=== PATIENT | female | born 1960 | race Caucasian/White ===

== ENCOUNTER 2019-05-02 10:04 | Emergency (ER) | payer BC ==
[2019-05-02] MEDS ORDERED: Ketorolac 60 MG/2 ML SDV IM ONE (11:18)
--- NOTE | 2019-05-02 11:26 | EDM.PDOC ---
ED HPI GENERAL MEDICAL PROBLEM - General Chief Complaint: ENT Problem Stated Complaint: THROAT PROBLEMS Time Seen by Provider: 05/02/19 10:59 Source of Information: Reports: Patient, RN Notes Reviewed History Limitations: Reports: No Limitations - History of Present Illness INITIAL COMMENTS - FREE TEXT/NARRATIVE: Patient is a 58-year-old female who presents to the ED for the evaluation of a sore throat. Patient notes that she developed sinus issues about 10 days ago on April 22, for which she thought was getting better. But 3 days ago she developed some throat pain and swelling as well. She does appreciate some chest congestion with a wet cough and also a dry cough at times. Patient has been trying to take some children's Robitussin and vitamin C for management but this has not been helping much at all. Patient notes she has been checking her throat in the mirror and has appreciated some swelling and purulent drainage in the back of her throat. Patient denies any fevers but states she is mildly chilled at times a little bit of nausea but attributes this to increased coughing also some mild chest pain that she attributes to the increased coughing. Patient states she has chronic fatigue as she is usually sleep deprived. Patient does appreciate shortness of breath at rest and more with activity, this has worsened with this illness as well. She also does appreciate some right-sided ear pressure from the throat swelling. 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 Throat Pain Score (Numeric/FACES): 6 - Related Data Allergies Allergy/AdvReac Type Severity Reaction Status Date / Time ampicillin Allergy Hives Verified 05/02/19 10:38 Penicillins Allergy Hives Verified 05/02/19 10:38 sulfamethoxazole Allergy Hives Verified 05/02/19 10:38 [From ] trimethoprim [From ] Allergy Hives Verified 05/02/19 10:38 Home Meds: Home Meds Doxycycline [Vibramycin] 100 mg PO BID #19 cap 05/02/19 [Rx] Past Medical History Endocrine/Metabolic History: Reports: Hypothyroidism Social & Family History - Tobacco Use Smoking Status *Q: Never Smoker - Caffeine Use Caffeine Use: Reports: None - Recreational Drug Use Recreational Drug Use: No ED ROS ENT - Review of Systems Review Of Systems: See Below Constitutional: Reports: Chills, Fatigue. Denies: Fever HEENT: Reports: Ear Pain (Right sided), Throat Pain, Throat Swelling Respiratory: Reports: Shortness of Breath, Cough. Denies: Wheezing, Sputum Cardiovascular: Reports: Chest Pain (chest discomfort) Endocrine: Reports: No Symptoms GI/Abdominal: Reports: Nausea. Denies: Constipation, Diarrhea, Vomiting : Reports: No Symptoms Musculoskeletal: Reports: No Symptoms Skin: Reports: No Symptoms Neurological: Reports: No Symptoms Psychiatric: Reports: No Symptoms Hematologic/Lymphatic: Reports: No Symptoms Immunologic: Reports: No Symptoms ED EXAM, ENT - Physical Exam Exam: See Below Exam Limited By: No Limitations General Appearance: Alert, WD/WN, No Apparent Distress Eye Exam: Bilateral Eye: EOMI, Normal Inspection, PERRL Ears: Normal External Exam, Normal TMs Nose: Normal Inspection Mouth/Throat: Normal Inspection, Normal Gums, Normal Lips, Normal Teeth, Pharyngeal Erythema (bilaterally), Tonsillar Exudates (bilaterally) Head: Atraumatic, Normocephalic Neck: Normal Inspection, Supple, Non-Tender, Full Range of Motion, Tender Lateral (mild swelling appreciated, no discrete nodes detected.) Respiratory/Chest: No Respiratory Distress, Lungs Clear, Normal Breath Sounds, No Accessory Muscle Use, Chest Non-Tender Cardiovascular: Normal Peripheral Pulses, Regular Rate, Rhythm, No Murmur GI/Abdominal: Normal Bowel Sounds, Soft, Non-Tender, No Distention, No Mass Extremities: Normal Inspection, Normal Capillary Refill Neurological: Alert, Oriented, Normal Cognition, No Motor/Sensory Deficits Psychiatric: Normal Affect, Normal Mood Skin: Warm, Dry, Intact, Normal Color, No Rash Course - Vital Signs Last Recorded V/S: Last Vital Signs Temp 97.2 F 05/02/19 10:36 Pulse 79 05/02/19 10:36 Resp 16 05/02/19 10:36 BP 144/67 H 05/02/19 10:36 Pulse Ox 96 05/02/19 10:36 - Orders/Labs/Meds Meds: Medications Discontinued Medications Generic Name Dose Route Start Last Admin Trade Name Freq PRN Reason Stop Dose Admin Azithromycin 500 mg 05/02/19 12:02 05/02/19 12:23 Zithromax PO 05/02/19 12:03 500 mg ONETIME ONE Administration Doxycycline Hyclate 100 mg 05/02/19 12:24 05/02/19 12:35 Vibramycin PO 05/02/19 12:25 100 mg ONETIME ONE Administration Ketorolac Tromethamine 60 mg 05/02/19 11:18 05/02/19 11:31 Toradol IM 05/02/19 11:19 60 mg ONETIME ONE Administration - Re-Assessments/Exams Free Text/Narrative Re-Assessment/Exam: 05/02/19 11:58 Patient presents to the ED for the evaluation of a sore throat. A strep screen was obtained by triage nurse, this is positive at this time. Due to the patient 's penicillin allergy we will give her a course of a azithromycin for management. Departure - Departure Time of Disposition: 12:05 Disposition: Home, Self-Care 01 Condition: Fair Clinical Impression: Strep throat - Discharge Information *PRESCRIPTION DRUG MONITORING PROGRAM REVIEWED*: No *COPY OF PRESCRIPTION DRUG MONITORING REPORT IN PATIENT ROXI: No Prescriptions: Doxycycline [Vibramycin] 100 mg PO BID #19 cap Instructions: Strep Throat, [id number] Referrals: PCP,Not In Area [Primary Care Provider] - Forms: ED Department Discharge Additional Instructions: You were evaluated in the ED today for your sore throat. Your rapid strep screen was positive for strep at this time. You were given a dose of Doxycycline in the ER for management due to your penicillin allergy. You were given a prescription of antibiotics for 10 days to complete the course of management. These were electronic sent to the Clinic pharmacy located at the [facility] across the street. In regards to your records, he were given a release information sheet to fill out, your records should be made available to your primary care provider in a short amount of time. Please return to the ER if your symptoms change or worsen.
[2019-05-02] MEDS ORDERED: Azithromycin 250 MG Tab PO ONE (12:02)
[2019-05-02] MEDS ORDERED: Doxycycline 100 MG Cap PO ONE (12:24)
== END 2019-05-02 12:52 | disposition home or self-care (01) ==
LOC: JD.ED 10:04
DX: J02.0 Streptococcal pharyngitis (principal); Z88.0 Allergy status to penicillin; Z88.1 Allergy status to other antibiotic agents
CPT/HCPCS: 87430; 96372; 99283; A9270; J1885